=== PATIENT | female | born 1990 | race African-American/Black ===

== ENCOUNTER 2016-06-26 11:24 | Emergency (ER) | payer SELFPAY ==
[~2016-06-26] VITALS: Ht 157.5 cm; Wt 96.5 kg
[~2016-06-26 11:24] MED LIST: PRED20 PO; ZANT300T PO; ZYRT10CA PO
[2016-06-26 11:26] VITALS: BP 128/73; PULSE 86; RESP 20; TEMP 97.9; O2SAT 97
== END 2016-06-26 14:47 | disposition left against medical advice (07) ==
LOC: NED 11:24
DX: R51 Headache (principal); M79.1 Myalgia; R11.0 Nausea; Z53.21 Procedure and treatment not carried out due to patient leaving prior to being seen by health care provider
CPT/HCPCS: 99281

== ENCOUNTER 2016-08-23 14:19 | Emergency (ER) | payer OTHER ==
[2016-08-23 14:21] VITALS: BP 148/85; PULSE 97; RESP 16; TEMP 98; O2SAT 98
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
== END 2016-08-23 16:01 | disposition home or self-care (01) ==
LOC: NEPK 14:19
DX: S39.012A Strain of muscle, fascia and tendon of lower back, initial encounter (principal); V89.2XXA Person injured in unspecified motor-vehicle accident, traffic, initial encounter
CPT/HCPCS: 99282

== ENCOUNTER 2016-11-09 18:27 | Emergency (ER) | payer SELFPAY ==
[~2016-11-09] VITALS: Ht 157.5 cm; Wt 100.0 kg
[~2016-11-09 18:27] MED LIST changes: -PRED20 PO; -ZANT300T PO
[2016-11-09 18:33] VITALS: BP 124/70; PULSE 70; RESP 20; TEMP 98.6; O2SAT 100
--- NOTE | 2016-11-09 18:36 | PD ---
Physical Exam Date Seen by Provider: Nov 09, 2016 Time Seen by Provider: 18:35 Narrative 26 yo female here for nausea and lower abdominal pain. Brought by [facility]. Going on for today. No chest pain or SOB. No urinary symptoms. No other medical issues. Vitals are stable in triage. Awaiting Bed placement. Data Data Last Documented VS Vital Signs Date Time Temp Pulse Resp B/P Pulse Ox O2 Delivery O2 Flow Rate FiO2 11/09/16 18:33 98.6 70 20 124/70 100 Room Air [facility] Medical Record Reviewed: Yes Supervised Visit with JAVY: Sean Rivera Nov 09, 2016 18:36
[2016-11-09 18:44] VITALS: BP 122/78; PULSE 79; RESP 12; TEMP 98.4; O2SAT 98
--- NOTE | 2016-11-09 18:47 | PD ---
HPI . nausea and abdominal pain x few hours Chief Complaint: Abdominal Pain Time Seen by Provider: 18:47 Travel History International Travel<30 days: No Contact w/Intl Traveler<30days: No Traveled to known affect area: No History of Present Illness HPI 26-year-old female with history of seasonal allergies on Claritin here with complaints of nausea and lower dizziness since earlier today. Patient tells me that she was at work and all of a sudden developed some nausea and lower abdominal pain. She admits to being constipated for the past 3 days. She tells me that she was unable to work and decided to call [facility] for transportation to the emergency department and she did not feel well. She rates her lower abdominal pain as 7/10 and it is located in the suprapubic area without radiation. She does admit to possibly starting her menstrual cycle as she is currently spotting. She denies any chance of . She has not vomited. PFSH Past Medical History Medical History: Denies Significant Hx Diminished Hearing: No ?: Not LMP: CURRENT : 0 Past Surgical History Tonsillectomy: Yes Social History Alcohol Use: No Tobacco Use: No Substance Use: No Allergies-Medications (Allergen,Severity, Reaction): Coded Allergies: No Known Allergies (Unverified , 11/09/16) Reported Meds & Prescriptions Reported Meds & Active Scripts Active Zofran Odt (Ondansetron Odt) 4 Mg Tab 4 Mg SL Q8HR PRN Reported Cetirizine (Cetirizine HCl) 10 Mg Tab 10 Mg PO DAILY Review of Systems General / Constitutional: No: Fever Eyes: No: Visual changes HENT: No: Headaches Cardiovascular: No: Chest Pain or Discomfort Respiratory: No: Shortness of Breath Gastrointestinal: Positive: Nausea, Abdominal Pain Genitourinary: No: Dysuria Musculoskeletal: No: Pain Skin: No Rash Neurologic: No: Weakness Psychiatric: No: Depression Endocrine: No: Polydipsia Hematologic/Lymphatic: No: Easy Bruising Physical Exam Narrative GENERAL: AAO x 3, no acute distress, Well-nourished, well-developed patient. SKIN: Warm and dry. No visible rashes or bruising. HEAD: Normocephalic and atraumatic. EYES: No scleral icterus. No injection or drainage. EOM intact, PERRLA ENT: No nasal drainage noted. Mucous membranes pink. Airway patent. NECK: Supple, trachea midline. No JVD. CARDIOVASCULAR: Regular rate and rhythm without murmurs, gallops, or rubs. RESPIRATORY: Breath sounds equal bilaterally. No accessory muscle use. No rhonchi or rales. GASTROINTESTINAL: Abdomen soft, non-tender, nondistended. No rebound or guarding. No McBurney's point tenderness or Del Rosario's sign EXTREMITIES: No cyanosis or edema. BACK: No obvious deformity. No CVA tenderness. 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 Data Data Last Documented VS Vital Signs Date Time Temp Pulse Resp B/P Pulse Ox O2 Delivery O2 Flow Rate FiO2 11/09/16 18:50 98 Room Air 11/09/16 18:44 98.4 79 12 122/78 Orders Complete Blood Count With Diff (11/09/16 18:47) Comprehensive Metabolic Panel (11/09/16 18:47) Lipase (11/09/16 18:47) Urinalysis - C+S If Indicated (11/09/16 18:47) Iv Access Insert/Monitor (11/09/16 18:47) Ecg Monitoring (11/09/16 18:47) Oximetry (11/09/16 18:47) NPO (11/09/16 18:47) Ondansetron Inj (Zofran Inj) (11/09/16 19:00) Sodium Chloride 0.9% Flush (Ns Flush) (11/09/16 19:00) Ed Urine Pregnancytest Poc (11/09/16 18:47) Ketorolac Inj (Toradol Inj) (11/09/16 19:00) Labs Laboratory Tests Test 11/09/16 19:00 White Blood Count 6.2 TH/MM3 Red Blood Count 4.29 MIL/MM3 Hemoglobin 12.6 GM/DL Hematocrit 37.4 % Mean Corpuscular Volume 87.0 FL Mean Corpuscular Hemoglobin 29.4 PG Mean Corpuscular Hemoglobin 33.7 % Concent Red Cell Distribution Width 12.8 % Platelet Count 300 TH/MM3 Mean Platelet Volume 8.6 FL Neutrophils (%) (Auto) 58.8 % Lymphocytes (%) (Auto) 33.3 % Monocytes (%) (Auto) 5.6 % Eosinophils (%) (Auto) 1.8 % Basophils (%) (Auto) 0.5 % Neutrophils # (Auto) 3.7 TH/MM3 Lymphocytes # (Auto) 2.1 TH/MM3 Monocytes # (Auto) 0.3 TH/MM3 Eosinophils # (Auto) 0.1 TH/MM3 Basophils # (Auto) 0.0 TH/MM3 CBC Comment DIFF FINAL Differential Comment Urine Color YELLOW Urine Turbidity CLEAR Urine pH 7.0 Urine Specific [place] 1.026 Urine Protein TRACE mg/dL Urine Glucose (UA) NEG mg/dL Urine Ketones NEG mg/dL Urine Occult Blood SMALL Urine Nitrite NEG Urine Bilirubin NEG Urine Urobilinogen 2.0 MG/DL Urine Leukocyte Esterase NEG Urine RBC 1 /hpf Urine WBC 1 /hpf Urine Squamous Epithelial <1 /hpf Cells Urine Mucus FEW /lpf Microscopic Urinalysis Comment CULT NOT INDICATED Sodium Level 140 MEQ/L Potassium Level 3.8 MEQ/L Chloride Level 109 MEQ/L Carbon Dioxide Level 27.2 MEQ/L Anion Gap 4 MEQ/L Blood Urea Nitrogen 6 MG/DL Creatinine 0.72 MG/DL Estimat Glomerular Filtration 118 ML/MIN Rate Random Glucose 85 MG/DL Calcium Level 8.6 MG/DL Total Bilirubin 0.8 MG/DL Aspartate Amino Transf 8 U/L (AST/SGOT) Alanine Aminotransferase 15 U/L (ALT/SGPT) Alkaline Phosphatase 59 U/L Total Protein 7.0 GM/DL Albumin 3.6 GM/DL Lipase 70 U/L MDM Medical Decision Making Medical Screen Exam Complete: Yes Emergency Medical Condition: Yes Medical Record Reviewed: Yes Differential Diagnosis Gastroenteritis, constipation, colitis, enteritis Narrative Course 26-year-old female here with complaints of nausea and lower abdominal pain for a few hours. Examination is unremarkable. She has a completely benign abdominal examination. I do not feel imaging is indicated. Bedside test negative. I provided her with Zofran and Toradol here in the emergency department. I've ordered labs and will determine workup pending those results. Laboratory Tests Test 11/09/16 19:00 White Blood Count 6.2 TH/MM3 Red Blood Count 4.29 MIL/MM3 Hemoglobin 12.6 GM/DL Hematocrit 37.4 % Mean Corpuscular Volume 87.0 FL Mean Corpuscular Hemoglobin 29.4 PG Mean Corpuscular Hemoglobin 33.7 % Concent Red Cell Distribution Width 12.8 % Platelet Count 300 TH/MM3 Mean Platelet Volume 8.6 FL Neutrophils (%) (Auto) 58.8 % Lymphocytes (%) (Auto) 33.3 % Monocytes (%) (Auto) 5.6 % Eosinophils (%) (Auto) 1.8 % Basophils (%) (Auto) 0.5 % Neutrophils # (Auto) 3.7 TH/MM3 Lymphocytes # (Auto) 2.1 TH/MM3 Monocytes # (Auto) 0.3 TH/MM3 Eosinophils # (Auto) 0.1 TH/MM3 Basophils # (Auto) 0.0 TH/MM3 CBC Comment DIFF FINAL Differential Comment Urine Color YELLOW Urine Turbidity CLEAR Urine pH 7.0 Urine Specific [place] 1.026 Urine Protein TRACE mg/dL Urine Glucose (UA) NEG mg/dL Urine Ketones NEG mg/dL Urine Occult Blood SMALL Urine Nitrite NEG Urine Bilirubin NEG Urine Urobilinogen 2.0 MG/DL Urine Leukocyte Esterase NEG Urine RBC 1 /hpf Urine WBC 1 /hpf Urine Squamous Epithelial <1 /hpf Cells Urine Mucus FEW /lpf Microscopic Urinalysis Comment CULT NOT INDICATED Sodium Level 140 MEQ/L Potassium Level 3.8 MEQ/L Chloride Level 109 MEQ/L Carbon Dioxide Level 27.2 MEQ/L Anion Gap 4 MEQ/L Blood Urea Nitrogen 6 MG/DL Creatinine 0.72 MG/DL Estimat Glomerular Filtration 118 ML/MIN Rate Random Glucose 85 MG/DL Calcium Level 8.6 MG/DL Total Bilirubin 0.8 MG/DL Aspartate Amino Transf 8 U/L (AST/SGOT) Alanine Aminotransferase 15 U/L (ALT/SGPT) Alkaline Phosphatase 59 U/L Total Protein 7.0 GM/DL Albumin 3.6 GM/DL Lipase 70 U/L 1947: Patient feels better. She more than likely has a gastroenteritis and some constipation. She can take some Zofran, which I provided. She can also use [id number] stool softener I advised to follow-up with primary care provider Diagnosis Primary Impression: Gastroenteritis Additional Impression: Constipated Qualified Code: K59.00 - Constipation, unspecified constipation type Patient Instructions: General Instructions Additional Instructions: Please return to emergency department if your symptoms return or worsen. Follow up with your primary care provider. Take medications as prescribed. Follow-up with the primary care provider as we discussed. You can also use over the counter stool softener as needed and directed on the bottle. Med/Other Pt SpecificInfo: Prescription(s) given Scripts Ondansetron Odt (Zofran Odt)4 Mg Tab4 Mg SL Q8HR PRN (Nausea/Vomiting) #12 TAB Ref 0 Prov:Sumanth Akins MD 11/09/16 Disposition: 01 DISCHARGE HOME Condition: Stable Mali Padgett Nov 09, 2016 18:47
[2016-11-09] MEDS ORDERED: CETI10 PO (18:49)
[2016-11-09 18:50] VITALS: O2SAT 98
[2016-11-09] MEDS ORDERED: SODIUM CHLORIDE 0.9% FLUSH 10 ML FLUSH IV FLUSH PRN (19:00)
[2016-11-09] MEDS ORDERED: KETOROLAC TROMETHAMINE 30 MG/ML (IVP) VIAL IV PUSH ONE (19:00)
[2016-11-09] MEDS ORDERED: ONDANSETRON HCL 4 MG/2 ML VIAL IVP ONE (19:00)
[2016-11-09 19:22] LABS: BLOOD, URINE SMALL (NEG); COMMENT (UR) CULT NOT INDICATED; CULTURE IF INDICATED CULT NOT INDICATED; GLUCOSE,URINE NEG (NEG); KETONE, URINE NEG (NEG); MUCUS URINE FEW /lpf (OCC); NITRITE,URINE NEG (NEG); SQUAMOUS EPITHELIAL CELL URINE <1 /hpf (0-5); URINE COLOR YELLOW (YELLW/STRAW)
[2016-11-09 19:24] LABS: AUTOMATED NEUTROPHIL # 3.7 TH/MM3 (1.8-7.7); BASOPHIL % 0.5 % (0.0-2.0); EOSINOPHIL # 0.1 TH/MM3 (0-0.4); EOSINOPHIL % 1.8 % (0.0-4.0); HEMATOCRIT 37.4 % (35.0-46.0); HEMO FLAGS DIFF FINAL; LYMPH % 33.3 % (9.0-44.0); LYMPHOCYTE # 2.1 TH/MM3 (1.0-4.8); MEAN CORPUSCULAR HEMOGLOBIN 29.4 PG (27.0-34.0); MEAN CORPUSCULAR HGB CONC 33.7 % (32.0-36.0); MONO % 5.6 % (0.0-8.0); NEUT % 58.8 % (16.0-70.0); PLATELET COUNT 300 TH/MM3 (150-450); RED BLOOD COUNT 4.29 MIL/MM3 (4.00-5.30); RED CELL DISTRIBUTION WIDTH 12.8 % (11.6-17.2); WHITE BLOOD COUNT 6.2 TH/MM3 (4.0-11.0)
[2016-11-09 19:40] LABS: ANION GAP 4 MEQ/L (5-15); BICARBONATE 27.2 MEQ/L (21.0-32.0); BLOOD UREA NITROGEN 6 MG/DL (7-18); CHLORIDE 109 MEQ/L (98-107); GLOMERULAR FILTRATION RATE 118 ML/MIN (>89); POTASSIUM 3.8 MEQ/L (3.5-5.1); SODIUM (NA) 140 MEQ/L (136-145)
[2016-11-09 19:42] LABS: ALT (GPT) 15 U/L (10-53); AST (GOT) 8 U/L (15-37)
[2016-11-09 19:43] LABS: ALKALINE PHOSPHATASE 59 U/L (45-117); TOTAL BILIRUBIN ADULT 0.8 MG/DL (0.2-1.0)
[2016-11-09] MEDS ORDERED: ZOFR4TAB3 SL (19:47)
== END 2016-11-09 20:08 | disposition home or self-care (01) ==
LOC: NEPE 18:27
DX: K52.9 Noninfective gastroenteritis and colitis, unspecified (principal); K59.00 Constipation, unspecified
CPT/HCPCS: 80053; 81001; 83690; 84703; 85025; 96374; 96375; 99284; J1885; J2405

== ENCOUNTER 2017-03-30 03:20 | Emergency (ER) | payer SELFPAY ==
[~2017-03-30] VITALS: Ht 157.5 cm; Wt 100.0 kg
[~2017-03-30 03:20] MED LIST changes: +CETI10 PO; +ZOFR4TAB3 SL; -ZYRT10CA PO
[2017-03-30 03:21] VITALS: BP 137/81; PULSE 79; RESP 16; TEMP 97.9; O2SAT 99
--- NOTE | 2017-03-30 04:01 | PD ---
HPI Chief Complaint: Abdominal Pain Time Seen by Provider: 03:42 Travel History International Travel<30 days: No Contact w/Intl Traveler<30days: No Traveled to known affect area: No History of Present Illness HPI 26 year-old woman, presents with intermittent abdominal pain ongoing for the past 3 weeks. Pains mostly in the lower abdomen, pressure-like discomfort. States she got her menstrual cycle and since then hasn't really felt well with worsening lower abdominal discomfort and feeling generally poorly. No urinary symptoms. No vaginal discharge. She sex active one male partner. Denies any history of previous similar problems. Menstrual cycles been a little bit irregular recently. History Past Medical History Medical History: Denies Significant Hx Tetanus Vaccination: Unknown Influenza Vaccination: No LMP: 03/12/2017 : 0 Social History Alcohol Use: No Tobacco Use: No Allergies-Medications (Allergen,Severity, Reaction): Coded Allergies: No Known Allergies (Unverified , 11/09/16) Reported Meds & Prescriptions Reported Meds & Active Scripts Active Zofran Odt (Ondansetron Odt) 4 Mg Tab 4 Mg SL Q8HR PRN Reported Cetirizine (Cetirizine HCl) 10 Mg Tab 10 Mg PO DAILY Review of Systems Except as stated in HPI: all other systems reviewed are Neg Physical Exam Narrative GENERAL: Obese 26 year-old woman, no acute distress. SKIN: Focused skin assessment warm/dry. HEAD: Atraumatic. Normocephalic. CARDIOVASCULAR: Regular rate and rhythm. No murmur appreciated. RESPIRATORY: No accessory muscle use. Clear to auscultation. Breath sounds equal bilaterally. GASTROINTESTINAL: Abdomen soft, non-tender, nondistended. Hepatic and splenic margins not palpable. MUSCULOSKELETAL: No obvious deformities. No clubbing. No cyanosis. No edema. NEUROLOGICAL: Awake and alert. No obvious cranial nerve deficits. Motor grossly within normal limits. Normal speech. PSYCHIATRIC: Appropriate mood and affect; insight and judgment normal. Data Data Last Documented VS Vital Signs Date Time Temp Pulse Resp B/P (MAP) Pulse Ox O2 Delivery O2 Flow Rate FiO2 03/30/17 03:21 97.9 79 16 137/81 (99) 99 Room Air Orders Orders Gc And Chlamydia Pcr (03/30/17 03:52) Wet Prep Profile (03/30/17 03:52) Urinalysis - C+S If Indicated (03/30/17 03:52) Ed Urine Pregnancytest Poc (03/30/17 03:52) Labs Laboratory Tests Test 03/30/17 04:15 Urine Color YELLOW Urine Turbidity CLEAR Urine pH 7.0 Urine Specific [place] 1.042 Urine Protein 30 mg/dL Urine Glucose (UA) NEG mg/dL Urine Ketones TRACE mg/dL Urine Occult Blood NEG Urine Nitrite NEG Urine Bilirubin NEG Urine Urobilinogen 4.0 MG/DL Urine Leukocyte Esterase NEG Urine RBC LESS THAN 1 /hpf Urine WBC LESS THAN 1 /hpf Urine Squamous Epithelial Cells 4 /hpf Urine Mucus MANY /lpf Microscopic Urinalysis Comment CULT NOT INDICATED Clue Cells (Wet Prep) PRESENT Vaginal Trichomonas (Wet Prep) NONE SEEN Vaginal Yeast (Wet Prep) NONE SEEN MDM Medical Decision Making Medical Screen Exam Complete: Yes Emergency Medical Condition: Yes Interpretation(s) UA unremarkable Wet prep was some clue cells Differential Diagnosis Trichomonas, fibroids, endometriosis, UTI, PID, , other Narrative Course Medical decision making INITIAL: 26 year-old woman of vague lower abdominal pain. Associated with some menstrual irregularity. Looks well. We'll do pelvic. Check urine. Outpatient follow-up. Wet prep clue cells, but history not suggestive of BV. Diagnosis Primary Impression: Lower abdominal pain Additional Instructions: Use acetaminophen or ibuprofen as needed for abdominal pain. Follow-up with a tire beader maker for further evaluation. Return to the emergency department for any new or worsening symptoms. Med/Other Pt SpecificInfo: No Change to Meds Disposition: 01 DISCHARGE HOME Condition: Stable Tamir Devi MD Mar 30, 2017 04:01
[2017-03-30 04:25] LABS: BILIRUBIN, URINE NEG (NEG); BLOOD, URINE NEG (NEG); GLUCOSE,URINE NEG (NEG); KETONE, URINE TRACE mg/dL (NEG); MUCUS URINE MANY /lpf (OCC); NITRITE,URINE NEG (NEG); SQUAMOUS EPITHELIAL CELL URINE 4 /hpf (0-5); URINE COLOR YELLOW (YELLW/STRAW); URINE LEUKOCYTE ESTERASE NEG (NEG)
== END 2017-03-30 05:48 | disposition home or self-care (01) ==
LOC: NEPC 03:20
DX: R10.30 Lower abdominal pain, unspecified (principal)
CPT/HCPCS: 81001; 84703; 87210; 87491; 87591; 99283

== ENCOUNTER 2017-06-19 00:42 | Emergency (ER) | payer SELFPAY ==
[~2017-06-19] VITALS: Ht 157.5 cm; Wt 100.0 kg
[2017-06-19 01:10] VITALS: BP 127/68; PULSE 85; RESP 18; TEMP 98.2; O2SAT 100
--- NOTE | 2017-06-19 02:47 | PD ---
HPI Chief Complaint: Rn Review Problem/Complaint Time Seen by Provider: 02:41 Travel History International Travel<30 days: No Contact w/Intl Traveler<30days: No Traveled to known affect area: No History of Present Illness HPI The patient is a 26 year old female who presents to the [facility] emergency department with a history of vaginal discharge that began 1 week ago. She has had vaginal burning and itching. The discharge is white to cream colored. She tried using Monistat without any success. She reports that she had more burning with use of the Monistat. She reports that she is in a monogamous relationship. She denies having any new sexual partners or concerns about sexually transmitted infections. She denies any recent antibiotic use. On review of systems otherwise, she denies having any recent fevers, cough, congestion, neck pain, chest pain, shortness of breath, abdominal pain, vomiting , diarrhea, urinary frequency or urgency, or neurologic symptoms. LMP: 05/15, irregular occasionally. PFSH Past Medical History Narrative Medical The patient's past medical history is significant for idiopathic urticaria. Diminished Hearing: No Integumentary: Yes (hives) Tetanus Vaccination: Unknown Influenza Vaccination: No ?: Not LMP: 05/15/2017 : 0 Past Surgical History Narrative Surgical The patient's past surgical history is significant for a tonsillectomy. Tonsillectomy: Yes Social History Alcohol Use: No Tobacco Use: No Substance Use: No Allergies-Medications (Allergen,Severity, Reaction): Coded Allergies: No Known Allergies (Unverified Adverse Reaction, Unknown, 06/19/17) Reported Meds & Prescriptions Reported Meds & Active Scripts Active Diflucan (Fluconazole) 150 Mg Tab 150 Mg PO ONCE Zofran Odt (Ondansetron Odt) 4 Mg Tab 4 Mg SL Q8HR PRN Reported Cetirizine (Cetirizine HCl) 10 Mg Tab 10 Mg PO DAILY Review of Systems Except as stated in HPI: all other systems reviewed are Neg General / Constitutional: No: Fever Eyes: No: Visual changes HENT: No: Headaches Cardiovascular: No: Chest Pain or Discomfort Respiratory: No: Shortness of Breath Gastrointestinal: No: Abdominal Pain Genitourinary: Positive: Discharge, No: Dysuria Musculoskeletal: No: Pain Skin: No Rash Neurologic: No: Weakness Psychiatric: No: Depression Endocrine: No: Polydipsia Hematologic/Lymphatic: No: Easy Bruising Physical Exam Narrative General: The patient is a well-developed well-nourished female in no acute distress Head and Neck exam: Head is normocephalic atraumatic. Eyes: EOMI, pupils are equal round and reactive to light. Nose: Midline septum with pink mucous membranes Mouth: Dentition unremarkable. Moist mucus membranes. Posterior oropharynx is not erythematous. No tonsillar hypertrophy. Uvula midline. Airway patent. Neck: No palpable lymphadenopathy. No nuchal rigidity. No thyromegaly. Cardiovascular: Regular rate and rhythm without murmurs, gallops, or rubs. Lungs: Clear to auscultation bilaterally. No wheezes, rhonchi, or rales. Abdomen: Soft, without tenderness to palpation in all 4 quadrants of the abdomen. No guarding, rebound, or rigidity. Normal bowel sounds are audible. No tenderness on palpation of McBurney's point. Extremities: No clubbing, cyanosis, or edema. Back: No costovertebral angle tenderness to palpation. Neurologic Exam: Grossly nonfocal Skin Exam: No rash noted. Intact skin that is warm and dry. Gynecologic exam: The patient was placed in the dorsal lithotomy position. Her external genitalia were examined. She had no evidence of lesions, however she did have some erythema around the vaginal introitus with some swelling noted. The speculum was placed into her vagina and the cervix was identified. She had a thick white discharge noted. No cervical friability. On Bimanual exam: she has no cervical motion tenderness. No adnexal tenderness or prominence noted on palpation. No uterine tenderness or enlargement noted on palpation. Data Data Last Documented VS Vital Signs Date Time Temp Pulse Resp B/P (MAP) Pulse Ox O2 Delivery O2 Flow Rate FiO2 06/19/17 01:10 98.2 85 18 127/68 (87) 100 Orders Orders Gc And Chlamydia Pcr (06/19/17 02:42) Wet Prep Profile (06/19/17 02:42) Urinalysis - C+S If Indicated (06/19/17 02:42) Ed Urine Pregnancytest Poc (06/19/17 02:42) Ceftriaxone Inj (Rocephin Inj) (06/19/17 06:45) Lidocaine 1% Inj (50 Ml) (Xylocaine 1% I (06/19/17 06:45) Azithromycin Powd Pack (Zithromax Powd P (06/19/17 06:45) Ed Discharge Order (06/19/17 06:33) Labs Laboratory Tests Test 06/19/17 04:30 Urine Color YELLOW Urine Turbidity CLEAR Urine pH 6.0 Urine Specific [place] 1.037 Urine Protein TRACE mg/dL Urine Glucose (UA) NEG mg/dL Urine Ketones NEG mg/dL Urine Occult Blood NEG Urine Nitrite NEG Urine Bilirubin NEG Urine Urobilinogen 2.0 MG/DL Urine Leukocyte Esterase SMALL Urine RBC 1 /hpf Urine WBC 1 /hpf Urine Squamous Epithelial Cells 2 /hpf Urine Mucus FEW /lpf Microscopic Urinalysis Comment CULT NOT INDICATED Clue Cells (Wet Prep) NONE SEEN Vaginal Trichomonas (Wet Prep) NONE SEEN Vaginal Yeast (Wet Prep) NONE SEEN Chlamydia trachomatis DNA (PCR) NOT DETECTED Neisseria gonorrhoeae DNA (PCR) NOT DETECTED MDM Medical Decision Making Medical Screen Exam Complete: Yes Emergency Medical Condition: Yes Medical Record Reviewed: Yes Differential Diagnosis Yeast vaginitis, versus gonorrhea, versus chlamydia, versus trichomoniasis, versus bacterial vaginosis Narrative Course During the course of the patient's emergency department visit, the patient's history, examination, and differential diagnosis were reviewed with the patient. The patient was placed on a monitor and storage bin tender with oximetry and frequent blood pressure monitoring. The patient had IV access obtained and blood work sent for analysis. A bedside test is negative. The patient's laboratory studies were reviewed and remarkable for a urinalysis that shows concentrated urine small leukocyte esterase, otherwise unremarkable, culture not indicated. Wet prep is negative. Given the patient's symptoms and negative wet prep the patient will be treated for a nonspecific cervicitis gastritis with Rocephin, Zithromax. Unfortunately, the patient refused administration of these medications. The patient was given a prescription for Diflucan. The patient was instructed to follow-up with the health department if she continues to have symptoms. The patient is resting comfortably and feels better, is alert and in no distress. The patient's results and examination findings were discussed with the patient. The repeat examination is unremarkable and benign. The history, exam, diagnostic testing, and current condition do not suggest any significant pathology to warrant further testing, continued ED treatment, admission, or surgical evaluation at this point. The vital signs have been stable. The patient does not have uncontrollable pain, intractable vomiting, or other significant symptoms. The patient's condition is stable and appropriate for discharge. The patient will pursue further outpatient evaluation with a primary care physician or other designated or consulting physician as indicated in the discharge instructions. The patient expressed understanding and was agreeable with this plan. Diagnosis Primary Impression: Vaginitis Qualified Codes: N76.0 - Acute vaginitis Referrals: [facility] Dept. 1 week Patient Instructions: General Instructions, Vaginitis (ED) Med/Other Pt SpecificInfo: Prescription(s) given Scripts Fluconazole (Diflucan) 150 Mg Tab 150 MG PO ONCE for Infection, #1 TAB 0 Refills Prov: Ana Bourgeois MD 06/19/17 Disposition: 01 DISCHARGE HOME Condition: Stable Ana Bourgeois MD Jun 19, 2017 02:47
[2017-06-19 05:23] LABS: BILIRUBIN, URINE NEG (NEG); BLOOD, URINE NEG (NEG); GLUCOSE,URINE NEG (NEG); KETONE, URINE NEG (NEG); MUCUS URINE FEW /lpf (OCC); NITRITE,URINE NEG (NEG); SQUAMOUS EPITHELIAL CELL URINE 2 /hpf (0-5); URINE COLOR YELLOW (YELLW/STRAW); URINE LEUKOCYTE ESTERASE SMALL (NEG)
[2017-06-19] MEDS ORDERED: DIFL150T PO (06:32)
[2017-06-19] MEDS ORDERED: cefTRIAXone 250 MG VIAL IM ONE (06:45)
[2017-06-19] MEDS ORDERED: LIDOCAINE HCL 1% 50 ML VIAL IM ONE (06:45)
[2017-06-19] MEDS ORDERED: AZITHROMYCIN PWD FOR SUSP 1 GM PACKET PO ONE (06:45)
== END 2017-06-19 06:56 | disposition home or self-care (01) ==
LOC: NEPE 00:42
DX: N76.0 Acute vaginitis (principal); Z79.899 Other long term (current) drug therapy
CPT/HCPCS: 81001; 84703; 87210; 87491; 87591; 99283